=== PATIENT | female | born 1985 | race African-American/Black ===

== ENCOUNTER 2023-01-23 18:24 | Emergency (ER) | payer OTHER, SELFPAY ==
--- NOTE | ~2023-01-23 | XR_ITS ---
EXAMINATION: XR CHEST CLINICAL INFORMATION: Reason for Exam cp COMPARISON: None TECHNIQUE: 2 views of the chest FINDINGS: Lines and tubes: EKG leads overlie the patient. Clear lungs. No pleural effusion. No pneumothorax. Normal cardiomediastinal silhouette. XR/XR chest 2V IMPRESSION: * Clear lungs.
[2023-01-23 18:46] VITALS: BP 151/91; PULSE 83; RESP 21; TEMP 37.1; O2SAT 100
[2023-01-23 18:47] VITALS: BP 160/102; PULSE 95; O2SAT 100; BMI 32.3
--- NOTE | 2023-01-23 19:50 | ECG_ITS ---
Test Reason : CHEST PAIN Blood Pressure : / mmHG Vent. Rate : 074 BPM Atrial Rate : 074 BPM P-R Int : 142 ms QRS Dur : 082 ms QT Int : 384 ms P-R-T Axes : 042 015 010 degrees QTc Int : 426 ms Normal sinus rhythm Minimal voltage criteria for LVH, may be normal variant ( R in aVL ) Nonspecific T wave abnormality Abnormal ECG No previous ECGs available Referred By: Taina Ocampo Electronically Signed By:MILLIE PHAN MD
[2023-01-23 20:16] VITALS: BP 141/67; PULSE 78; RESP 19; TEMP 37.1; O2SAT 100
[2023-01-23 21:03] VITALS: BP 161/90; PULSE 78; RESP 18; TEMP 36.6; O2SAT 100
--- NOTE | 2023-01-23 21:09 | MHC.EDTECH ---
Vitals updated and labs drawn and sent to lab
[2023-01-23 21:16] LABS: MANUAL DIFF FLAG NO
[2023-01-23 21:18] LABS: Basophils Absolute Auto 0.1 X10*3/uL (0.0-0.2); Basophils Percent Auto 0.7 % (0-2); Eosinophils Absolute Auto 0.3 X10*3/uL (0.0-0.4); Eosinophils Percent Auto 3.8 % (0-4); Hematocrit 42.2 % (37.0-47.0); Hemoglobin 13.2 g/dl (12.0-16.0); Imm Gran Abs Auto 0.02 X10*3/uL (0.00-0.03); Imm Gran Pct Auto 0.3 % (0.0-0.4); Lymphocytes Absolute Auto 3.3 X10*3/uL (1.2-4.9); Lymphocytes Percent Auto 47.7 % (20-40); Mean Corpuscular HGB Conc 31.3 g/dl (31.0-35.0); Mean Corpuscular Hemoglobin 24.5 pg (27.0-33.0); Mean Corpuscular Volume 78.4 fL (80.0-98.0); Mean Platelet Volume 10.3 fL (9.4-12.3); Monocytes Absolute Auto 0.6 X10*3/uL (0.1-1.2); Monocytes Percent Auto 7.9 % (2-11); Neutrophils Absolute Auto 2.7 x10*3/uL (2.0-8.3); Neutrophils Percent Auto 39.6 % (45-73); Platelet Count 286 X10*3/uL (160-400); Red Blood Count 5.38 X10*6/uL (4.20-5.50); Red Cell Distribution Width 14.7 % (11.0-16.0); White Blood Count 6.9 X10*3/uL (4.8-10.8)
[2023-01-23 21:26] LABS: INTERNATIONAL NORM RATIO 0.9 (0.9-1.1)
--- NOTE | 2023-01-23 21:26 | ED_ITS ---
HPI - General Adult General Chief complaint: General Medical Stated complaint: chest pains, 300mg of aspirins, per ems Time Seen by Provider: 01/23/23 21:25 Source: patient Mode of arrival: EMS Limitations: no limitations History of Present Illness HPI narrative: Patient felt faint and had chest pain for one week. She went to [facility] and was told she had costrochondritis. She has been taking NSAIDs but her pain is worse. Patient is a diabetic and has HTN. Patient states her pain is constant and a pressure Onset (ago): week(s) Severity: mild Exacerbating factors: none Related Data Previous Rx's Medication Instructions Recorded naproxen 500 mg tablet (Naprosyn) 500 mg PO BID #20 tabs 01/23/23 Allergies Allergy/AdvReac Type Severity Reaction Status Date / Time No Known Allergies Allergy Verified 01/23/23 19:50 Review of Systems Review of Systems: Yes all other systems are reviewed and are negative [facility] Social History Social History Advance Directives: No Advance Directives Information Provided: Yes Physical Exam ED Vital Signs: Vital Signs - 24 hr 01/23/23 18:46 01/23/23 20:16 01/23/23 21:03 Temperature 98.8 F 98.8 F 97.8 F Pulse Rate 83 78 78 Respiratory Rate 21 H 19 18 Blood Pressure 151/91 H 141/67 H 161/90 H Pulse Oximetry 100 100 100 Oxygen Delivery Method Room Air Room Air Room Air BMI result Body Mass Index 32.3 Const Other: obese female in no acute distress Nutritional Appearance: obese Orientation/consciousness: oriented to person and patient oriented x3 Limitations: no limitations HENMT Head: Yes normal to inspection Ears: external ears normal General nose exam: Normal external nose present Mouth: Normal oral and palatal mucosa present and oropharynx normal Throat: Yes posterior oropharynx normal Eyes General: appearance normal, both eyes and all related structures Neck Neck: Yes normal visual inspection Chest Other: left sided reproducible chest pain Resp Auscultation: clear to auscultation bilaterally Cardio Jugular venous distension: no JVD Rate: regular rate Rhythm: regular rhythm Heart sounds: S1 normal heart sound present and S2 normal heart sound present GI Inspection: Yes normal to inspection Palpation (GI): Soft to palpation, nontender and No hepatosplenomegaly present Auscultation: normal bowel sounds General: Yes no CVA tenderness Back/Spine/Pelvis Back: no CVA tenderness Skin General skin exam: no rashes or lesions noted Neuro General: oriented to person and patient oriented x3 Cranial nerves: Yes CN's II-XII intact bilaterally Motor exam (neuro): 5/5 motor strength present throughout Extrem General: Yes normal to inspection Psych Appearance: grossly normal Course Reevaluation(s) Reevaluation #1: EKG normal, ddimer negative, troponin negative, CXR negative will increase NSAIDS and dc home Time: 22:05 Medications Administered Discontinued Medications Generic Name Dose Route Start Last Admin Trade Name Freq PRN Reason Stop Dose Admin Ketorolac Tromethamine 60 mg 01/23/23 21:33 01/23/23 21:55 Ketorolac Tromethamine 60 Mg/2 Ml Vial IM 01/23/23 21:34 60 mg ONCE ONE Administration Medical Decision Making Differential Diagnosis Differential Diagnoses: The differential diagnosis associated with the presentation includes (Cardiac ischemia, PE, pneumonia, costrochondritis were all considered) Admission/Observation Consideration of admission/observation: Escalation of care including admission/ observation considered (Upon arrival this patient with DM, obesity, HTN with left sided chest pain was considered for admission) Lab Data MDM Lab Attestation statement: I reviewed the patient's lab results. (NO elevated WBC, negative troponin, negative ddimer) 01/23/23 21:08 01/23/23 21:08 Labs: Lab Results 01/23/23 01/23/23 01/23/23 Range/Units 21:08 21:08 21:08 WBC 6.9 (4.8-10.8) X10*3/uL RBC 5.38 (4.20-5.50) X10*6/uL Hgb 13.2 (12.0-16.0) g/dl Hct 42.2 (37.0-47.0) % MCV 78.4 L (80.0-98.0) fL MCH 24.5 L (27.0-33.0) pg MCHC 31.3 (31.0-35.0) g/dl RDW 14.7 (11.0-16.0) % Plt Count 286 (160-400) X10*3/uL MPV 10.3 (9.4-12.3) fL Immature Gran % (Auto) 0.3 (0.0-0.4) % Neut % (Auto) 39.6 L (45-73) % Lymph % (Auto) 47.7 H (20-40) % [place] % (Auto) 7.9 (2-11) % Eos % (Auto) 3.8 (0-4) % Baso % (Auto) 0.7 (0-2) % Lymph # (Auto) 3.3 (1.2-4.9) X10*3/uL [place] # (Auto) 0.6 (0.1-1.2) X10*3/uL Eos # (Auto) 0.3 (0.0-0.4) X10*3/uL Baso # (Auto) 0.1 (0.0-0.2) X10*3/uL Abs Immat Gran (auto) 0.02 (0.00-0.03) X10*3/uL Absolute Neuts (auto) 2.7 (2.0-8.3) x10*3/uL Absolute Nucleated RBC 0.000 (0.0-0.012) X10*3/uL Nucleated RBC % (auto) 0.0 (0.0-0.2) /100WBC PT 10.0 (10.0-13.1) SEC INR 0.9 (0.9-1.1) D-Dimer High Sensitivty < 150 NG/ML Sodium 141 (135-145) mmol/L Potassium 3.8 (3.3-5.1) mmol/L Chloride 105 (96-108) mmol/L Carbon Dioxide 25 (22-29) mmol/L Anion Gap 15 (12-20) BUN 12 (9-16) mg/dL Creatinine 0.74 (0.5-1.4) mg/dL Estim Creat Clear Calc 91.1 Estimated GFR > 60 Random Glucose 199 H (60-115) mg/dL Calcium 9.7 (8.4-10.2) mg/dL Troponin I High Sens (<3.5-17.0) ng/L 01/23/23 Range/Units 21:08 WBC (4.8-10.8) X10*3/uL RBC (4.20-5.50) X10*6/uL Hgb (12.0-16.0) g/dl Hct (37.0-47.0) % MCV (80.0-98.0) fL MCH (27.0-33.0) pg MCHC (31.0-35.0) g/dl RDW (11.0-16.0) % Plt Count (160-400) X10*3/uL MPV (9.4-12.3) fL Immature Gran % (Auto) (0.0-0.4) % Neut % (Auto) (45-73) % Lymph % (Auto) (20-40) % [place] % (Auto) (2-11) % Eos % (Auto) (0-4) % Baso % (Auto) (0-2) % Lymph # (Auto) (1.2-4.9) X10*3/uL [place] # (Auto) (0.1-1.2) X10*3/uL Eos # (Auto) (0.0-0.4) X10*3/uL Baso # (Auto) (0.0-0.2) X10*3/uL Abs Immat Gran (auto) (0.00-0.03) X10*3/uL Absolute Neuts (auto) (2.0-8.3) x10*3/uL Absolute Nucleated RBC (0.0-0.012) X10*3/uL Nucleated RBC % (auto) (0.0-0.2) /100WBC PT (10.0-13.1) SEC INR (0.9-1.1) D-Dimer High Sensitivty NG/ML Sodium (135-145) mmol/L Potassium (3.3-5.1) mmol/L Chloride (96-108) mmol/L Carbon Dioxide (22-29) mmol/L Anion Gap (12-20) BUN (9-16) mg/dL Creatinine (0.5-1.4) mg/dL Estim Creat Clear Calc Estimated GFR Random Glucose (60-115) mg/dL Calcium (8.4-10.2) mg/dL Troponin I High Sens < 2.7 (<3.5-17.0) ng/L Independent Interpretation I performed an independent interpretation of an: EKG (sinus [address] or twave changes) and Plain X-Ray (CXR: no infiltrate or PTX) Tests considered The following testing was considered but not selected: I considered a CT angio of chest but the ddimer was negative Prescription Management I considered prescription management with: Pain Medication (I considered narcotic meds but will start NSAIDS) and Antibiotic (I considered Antibiotic but no elevated wbc and no pneumonia on xray) Chronic Conditions Patient?s care impacted by: Hypertension and Other (obesity) Discharge Plan Discharge Clinical Impression: Acute costochondritis Patient Disposition: Home, Self-Care Instructions: Costochondritis (ED) Prescriptions: New naproxen [Naprosyn] 500 mg tablet 500 mg PO BID Qty: 20 0RF Referrals: Physician,None [Primary Care Provider] - 5 days
[2023-01-23 21:31] LABS: Anion Gap 15 (12-20); Blood Urea Nitrogen 12 mg/dL (9-16); Calcium 9.7 mg/dL (8.4-10.2); Carbon Dioxide 25 mmol/L (22-29); Chloride 105 mmol/L (96-108); Creatinine Clr Calc Pharmacy 91.1; Estimated Glomerular Filt Rate > 60; Glucose Random 199 mg/dL (60-115); Potassium 3.8 mmol/L (3.3-5.1); Sodium 141 mmol/L (135-145)
[2023-01-23 21:44] LABS: Troponin-I High Sensitivity < 2.7 ng/L (<3.5-17.0)
[2023-01-23 21:51] LABS: D Dimer High Sensitivity < 150 NG/ML
[2023-01-23] MEDS: Ketorolac Tromethamine 60 MG/2 ML VIAL IM (21:55)
== END 2023-01-23 23:03 | disposition home or self-care (01) ==
PROVIDERS: Physician Assistant; Emergency Provider Emergency Medicine
DX: R07.89 Other chest pain (principal); M94.0 Chondrocostal junction syndrome [Tietze]; Z79.899 Other long term (current) drug therapy
CPT/HCPCS: 36415; 71046; 80048; 84484; 85025; 85379; 85610; 93005; 96372; 99284; 99285; J1885

== ENCOUNTER → 2023-01-23 19:50 | Outpatient (BNV) | payer OTHER, SELFPAY | PROVIDERS: Emergency Provider Emergency Medicine; Visit Provider Internal Medicine Cardiovascular Disease | DX: R07.9 Chest pain, unspecified (principal) | CPT/HCPCS: 93010 ==

== ENCOUNTER 2024-02-17 13:06 | Outpatient (AMB) | payer OTHER, SELFPAY ==
--- NOTE | 2024-02-17 13:10 | A.OFFVIS_ITS ---
Vital Signs 3 02/17/24 13:12 Height 4 ft 11 in Weight 198 lb 6.656 oz BMI 40.1 BP 143/91 H Blood Pressure Location Lt brachial Position Sitting Pulse 84 Intake Visit Reasons: Rectal bleeding Intake Note: Jneifer presents in the office as a new patient for Rectal Bleeding. CC: She states that when she has a BM is when the bleeding occurs. Not actively bleeding - states that she has constipation on some days and other days she has diarrhea. She has diverticulitis. Oven Baker Required: No Allergies clindamycin Allergy (Mild, Verified 02/17/24 13:14) Unknown HPI HPI Rectal bleeding: Details: 39-year-old female here for initial evaluation of rectal bleeding. She is referred by [facility] primary care PMX Morbid obesity Diabetes Hypertension High cholesterol Chronic low back pain Fibromyalgia syndrome Migraines Costochondritis Endometriosis Insomnia History of diverticulitis GERD History of pericarditis * SURGICAL HISTORY Hysterectomy Exploratory laparotomy Dental surgery section * ALLERGIES Clindamycin - Hives * LABS SUPPLIED BY PCP: 11/2022 unremarkable CBC except for thrombophilia of 357, unremarkable renal panel, unremarkable hepatic panel CT [facility] 10/12/2023 RESULT: CT Abd/Pelvis W/ IV Contrast Only CT Abd/Pelvis W/ IV Contrast Only Hx of Present Illness: sharp shooting cp starting 45 min ago, hx pericarditis, abd pain upper left and tender, L calf pain; Reason: Other:; new tender mass epigastric, ?unreducible hernia; Clinical Question(s): Other:; Order Comment: TECHNIQUE: Spiral CT through the abdomen and pelvis with IV contrast formatted in 3 planes. 100 cc of Omnipaque 300 was administered intravenously. This study was performed without oral contrast. Weight-based protocol using automatic tube modulation was used to optimize exposure parameters. CTDIvol Body: 18.00 mGy, DLP Body: 976 mGy*cm. COMPARISON: None. FINDINGS: Vice President And Portfolio Manager View Findings, Lines and Tubes: None. Visualized Chest: Lung bases are clear. No pleural effusion. The heart is normal in size. No pericardial effusion. Diaphragm: Normal. Liver: Normal. Gallbladder: No CT evidence of gallbladder pathology. Bile ducts: No biliary ductal dilation. Spleen: Normal. Pancreas: Normal. Adrenal glands: Normal. Kidneys and ureters: No hydronephrosis, stones, or suspicious masses. Simple appearing renal cysts are noted, requiring no dedicated follow up. Bladder: Normal. Reproductive organs: Unremarkable. Stomach, small bowel, and large bowel: Colonic diverticulosis present. No inflammatory changes appreciated. No obstruction. Appendix: Normal. Peritoneum and retroperitoneum: No ascites or pneumoperitoneum. No omental or mesenteric lesions. Lymph nodes: No enlarged lymph nodes. Blood vessels: Normal. No aneurysm. No evidence of venous thrombosis. Abdominal and pelvic wall: Unremarkable. Bones: No acute abnormality. IMPRESSION: Unremarkable CT of the abdomen and pelvis. TODAYS VISIT She has had 203 TICS attacks over the past 4 years, and she only has rectal bleeding when she has TICS. She also contends with endometriosis. She has never had a colonoscopy. She feared not being put to sleep r/t the procedure. This is what they told her in [place]. NO upper abd pain, no N/V except when pain is severe. CIC yes, incomplete evacuation with Miralax - no fiber supplement. I recommend benefiber or citrucel or whatever fits her budget. No FHX of tics or similar sx. NO known FHX of CRC Or polyps. She denies any cardiac or respiratory problems. There are no prior problems or sedation. NO ID problems. NO known FHX of CRC Or polyps. ? pericarditis do basic w/o and consider if rheum referral needed. Return office visit in 8 weeks [facility] Surgical History (Updated 02/17/24 @ 13:15 by JACQUES Huitron) History of esophagogastroduodenoscopy (EGD) History of dental surgery H/O exploratory laparotomy History of section History of hysterectomy Social History Alcohol intake: never Review of Systems Const Denies fatigue, Denies fever(s), Denies night sweats, Denies poor appetite and Denies weight loss Eyes Details: glasses Reports requires corrective lenses ENT Reports Normal hearing present, Denies dental pain, Denies dysphagia, Denies hearing loss, Denies mouth pain, Denies odynophagia, Denies throat swelling, Denies tongue swelling and Reports other (Dentition adequate) Card Reports no additional complaints Resp Reports no additional complaints GI Details: Denies abdominal pain, Denies melena, Reports bloating, Denies hematochezia, Reports constipation, Denies GI cramping, Denies dysphagia, Denies excessive flatus, Denies early satiety, Reports heartburn, Denies diarrhea, Denies nausea, Denies odynophagia, Denies vomiting and Denies hematemesis Musc Reports back pain, Reports myalgias, Reports joint swelling and Reports stiffness Skin/Breast Denies pruritus, Denies lesions, Denies rash and Denies jaundice Neuro Reports Normal hearing present and Denies Abnormal speech present Psych Reports anxiety Endo Denies fatigue Aller/Immun Denies throat swelling and Denies tongue swelling Physical Exam Vital Signs: Last Vital Signs Pulse 84 02/17/24 13:12 BP 143/91 H 02/17/24 13:12 BMI result Body Mass Index 40.1 Const General: cooperative, no acute distress, well developed and well groomed Nutritional Appearance: well nourished and obese morbidly obese Orientation/consciousness: oriented to person, oriented to place and oriented to time Limitations: No language barrier HEENT Head: Yes normocephalic and Yes atraumatic Eyes General: appearance normal, both eyes and all related structures Pupils: Equal, round and reactive pupils present Neck Neck: Yes normal visual inspection and Yes no lymphadenopathy Thyroid: Thyroid normal Resp Effort & Inspection: normal respiratory effort and able to speak in complete sentences Auscultation: clear to auscultation bilaterally Cardio Rate: regular rate Rhythm: regular rhythm Heart sounds: Normal, physiologic split S2 sound present Peripheral pulses: radial pulses present and posterior tibial pulses present GI Inspection: No distended, Yes Abdominal panniculus present and Yes obesity Palpation (GI): Soft to palpation, nontender, no guarding, not rigid and No hepatosplenomegaly present Percussion: Yes normal to percussion Auscultation: normal bowel sounds Rectal Exam - Female: deferred Abdomen image: 2 1. surgical scars 2. 3. 4. Skin General skin exam: no rashes or lesions noted, turgor normal, skin not dry, no jaundice, No spider nevi and no striae Rashes: no rashes Nails: normal Neuro General: oriented to person, oriented to place and oriented to time Cranial nerves: Yes Equal, round and reactive pupils present and Yes Normal hearing present Speech: No Abnormal speech present Extrem General: Yes normal to inspection, No clubbing, No cyanosis and No edema Psych Appearance: grossly normal and well kempt Mental Status: mental status grossly normal Speech and movement: Normal speech and movement present Affect: normal affect Attitude: cooperative Thought process: Normal thought process present and not confabulating Thought content: Normal thought content present Insight: Fair insight present (Psych) Judgement: Fair judgement present (Psych) Assessment & Plan Assessment & Plan (1) Rectal bleeding: Code(s): K62.5 - Hemorrhage of anus and rectum Category: Medical (2) Pre-op examination: Code(s): Z01.818 - Encounter for other preprocedural examination Category: Medical (3) History of diverticulitis: Comment: recurrent with 3-4 attack a year Code(s): Z87.19 - Personal history of other diseases of the digestive system Category: Medical (4) History of pericarditis: Code(s): Z86.79 - Personal history of other diseases of the circulatory system Category: Medical (5) Arthralgia: Code(s): M25.50 - Pain in unspecified joint Category: Medical Plan She has had 2-3 TICS attacks every year over the past 4 years, and she only has rectal bleeding when she has TICS. She also contends with endometriosis. She has never had a colonoscopy. She feared not being put to sleep r/t the procedure. This is what they told her in [place]. NO upper abd pain, no N/V except when pain is severe. CIC yes, incomplete evacuation with Miralax - no fiber supplement. I recommend benefiber or citrucel or whatever fits her budget. No FHX of tics or similar sx. NO known FHX of CRC Or polyps. She denies any cardiac or respiratory problems. There are no prior problems or sedation. NO ID problems. NO known FHX of CRC Or polyps. ? pericarditis do basic w/o and consider if rheum referral needed. Return office visit in 8 weeks Orders: Orders 2 FRANCIS Reflex Titer and Pattern Today M25.50 - Pain in unspecified joint, Z86.79 - Personal history of other diseases of the circulatory system Rheumatoid Factor Today M25.50 - Pain in unspecified joint, Z86.79 - Personal history of other diseases of the circulatory system Colonoscopy - GI Use Only Today Z87.19 - Personal history of other diseases of the digestive system C Reactive Protein Today M25.50 - Pain in unspecified joint, Z86.79 - Personal history of other diseases of the circulatory system Cyclic Citrullinated Peptide Today M25.50 - Pain in unspecified joint, Z86.79 - Personal history of other diseases of the circulatory system Erythrocyte Sedimentation Rate Today M25.50 - Pain in unspecified joint, Z86.79 - Personal history of other diseases of the circulatory system Medications: New 2 peg 3350-electrolytes 236-22.74-6.74 -5.86 gram (Golytely) until fecal effluent is clear; do not exceed a total volume of 2,000 mL 240 mL PO Q10M 4,000 mL 0RF 1 day Z12.11 - Encounter for screening for malignant neoplasm of colon bisacodyl (Dulcolax (bisacodyl)) 10 mg (2 x 5 mg) PO BEDTIME 4 tabs 0RF 2 days amoxicillin-pot clavulanate 875-125 mg 1 tab PO BID 20 tabs 0RF 10 days Z87.19 - Personal history of other diseases of the digestive system sennosides (Senna Laxative) 8.6 mg PO BEDTIME 60 tabs 3RF Coding Level of Care Code New Pt Level 3 (49140) Diagnoses Rectal bleeding K62.5 Pre-op examination Z01.818 History of diverticulitis Z87.19 History of pericarditis Z86.79 Arthralgia M25.50
[2024-02-17 13:12] VITALS: BP 143/91; PULSE 84; BMI 40.1
== END 2024-02-17 14:05 | disposition home or self-care (01) ==
PROVIDERS: PCP Internal Medicine; Visit Provider Nurse Practitioner
DX: K62.5 Hemorrhage of anus and rectum (principal); Z01.818 Encounter for other preprocedural examination; Z87.19 Personal history of other diseases of the digestive system; Z86.79 Personal history of other diseases of the circulatory system; M25.50 Pain in unspecified joint
CPT/HCPCS: 99203

== ENCOUNTER → 2024-02-17 13:06 | Outpatient (BNVA) | payer OTHER, SELFPAY | PROVIDERS: PCP Internal Medicine; Visit Provider Nurse Practitioner | DX: Z01.818 Encounter for other preprocedural examination (principal); K62.5 Hemorrhage of anus and rectum; M25.50 Pain in unspecified joint; Z87.19 Personal history of other diseases of the digestive system; Z86.79 Personal history of other diseases of the circulatory system | CPT/HCPCS: 99202 ==

== ENCOUNTER 2024-06-15 08:07 | Day surgery (SDC) | payer SELFPAY ==
--- NOTE | 2024-06-14 13:15 | P.CONAN_ITS ---
Documented by User: Elsa Moe NP 06/14/24 13:15 HPI - Anesthesia Eval Consult details Narrative: 39yo F for Colonoscopy Anesthesia Pre-Procedure Meds Is the patient on any of the following meds?: GLP1/DPP4 PMFSH Active Problems Active Problems: All Active Problems Arthralgia (Acute) Pre-op examination (Acute) Rectal bleeding (Acute) History of pericarditis (Acute) GERD (gastroesophageal reflux disease) (Acute) History of diverticulitis (Acute) Depression (Acute) Insomnia (Acute) Endometriosis (Acute) Costochondritis (Acute) Migraines (Acute) Primary fibromyalgia syndrome (Acute) Chronic low back pain (Acute) High cholesterol (Acute) Hypertension (Acute) IDDM (insulin dependent diabetes mellitus) (Acute) Morbid obesity (Acute) Past Medical History Medical History Migraine Chronic low back pain Insomnia Depression Elevated cholesterol HTN (hypertension) GERD (gastroesophageal reflux disease) Diabetes Surgical History Surgical History History of esophagogastroduodenoscopy (EGD) History of dental surgery H/O exploratory laparotomy History of section History of hysterectomy Social History Social History Are you a primary career services coordinator to a significant other at home: No Do you presently have visiting nurse or other home services: No Alcohol intake: never Patient Tobacco Use Status: Never used Tobacco Use of substances other than those prescribed or required for medical reasons: No Have you been hit, kicked, punched, or otherwise hurt by someone within the past year? If so, by whom?: No Are you DNR?: No Advance Directives: No Advance Directives Information Provided: Yes Recently lost weight without trying: No Nutrition Risks: No Nutritional Risk Meds Allergies Allergy/AdvReac Type Severity Reaction Status Date / Time clindamycin Allergy Mild Unknown Verified 02/17/24 13:14 Home Medications ?Medication ?Instructions ?Recorded ?Confirmed ?Last Taken ?Type albuterol sulfate 90 mcg/actuation inhalation 02/17/24 Unknown History aerosol inhaler atorvastatin 80 mg tablet mg PO 02/17/24 Unknown History blood-glucose sensor (FreeStyle #1 ea 02/17/24 Unknown History Yovani 3 Sensor device) lidocaine 5 % topical patch patch topical 02/17/24 Unknown History losartan 100 tab PO 02/17/24 Unknown History mg-hydrochlorothiazide 25 mg tablet metoprolol succinate 25 mg mg PO 02/17/24 Unknown History tablet,extended release 24 hr ondansetron HCl 4 mg tablet mg PO 02/17/24 Unknown History tirzepatide 10 mg/0.5 mL mg subcut 02/17/24 06/04/24 History subcutaneous pen injector (Mounjaro) Assessment and Plan Assessment Anesthesia Assessment: Chart Reviewed Documented by User: Monik Hidalgo MD 06/15/24 09:08 PMFSH Past Medical History Medical History Migraine Chronic low back pain Insomnia Depression Elevated cholesterol HTN (hypertension) GERD (gastroesophageal reflux disease) Diabetes Family History Family history of problems with anesthesia: No Surgical History Surgical History History of esophagogastroduodenoscopy (EGD) History of dental surgery H/O exploratory laparotomy History of section History of hysterectomy History of Problems with Anesthesia: No Social History Social History Are you a primary career services coordinator to a significant other at home: No Do you presently have visiting nurse or other home services: No Alcohol intake: never Patient Tobacco Use Status: Never used Tobacco Use of substances other than those prescribed or required for medical reasons: No Have you been hit, kicked, punched, or otherwise hurt by someone within the past year? If so, by whom?: No Are you DNR?: No Advance Directives: No Advance Directives Information Provided: Yes Recently lost weight without trying: No Nutrition Risks: No Nutritional Risk Meds Allergies Allergy/AdvReac Type Severity Reaction Status Date / Time clindamycin Allergy Mild Unknown Verified 02/17/24 13:14 Home Medications ?Medication ?Instructions ?Recorded ?Confirmed ?Last Taken ?Type albuterol sulfate 90 mcg/actuation inhalation 02/17/24 Unknown History aerosol inhaler atorvastatin 80 mg tablet mg PO 02/17/24 Unknown History blood-glucose sensor (FreeStyle #1 ea 02/17/24 Unknown History Yovani 3 Sensor device) lidocaine 5 % topical patch patch topical 02/17/24 Unknown History losartan 100 tab PO 02/17/24 Unknown History mg-hydrochlorothiazide 25 mg tablet metoprolol succinate 25 mg mg PO 02/17/24 Unknown History tablet,extended release 24 hr ondansetron HCl 4 mg tablet mg PO 02/17/24 Unknown History tirzepatide 10 mg/0.5 mL mg subcut 02/17/24 06/04/24 History subcutaneous pen injector (Amira) Exam Airway Mallampati Class: III TM Dist: >3cm Neck ROM: Full Heart: rrr Lungs: cta Assessment and Plan Assessment Anesthesia Assessment: Anesthesia Plan Discussed Final Anesthetic Review Family History of Problems with Anesthesia: No History of Problems with Anesthesia: No NPO: Yes ASA Class: III Final Preanesthetic Review: No Changes in Pt Med Stat, Meds/Allgs Chart Reviewed, Consent Obtained/Reviewed and Anes Risks/Benef Reviewed Patient Risk: Intermediate Procedure Risk: Low Anesthetic Plan Anesthetic Plan: MAC: Disposition: Standard PACU
--- NOTE | 2024-06-15 08:55 | MHC.SHP ---
Pre-Procedural Eval Section A - 24 Hr Update-Section A only Date of Service: 06/15/24 Section B - Complete if H&P > 30 days Chief Complaint: rectal bleeding,hx of disease of digestive system Relevant Family History (Specify if Yes): Yes Relevant Social History: None Present Medications: see Short Stay Collaborative assessment Medical History: Significant History (Migraine Chronic low back pain Insomnia Depression Elevated cholesterol HTN (hypertension) GERD (gastroesophageal reflux disease) Diabetes) History of Previous Operations: Relevant previous surgery/procedure and date(s) (History of esophagogastroduodenoscopy (EGD) History of dental surgery H/O exploratory laparotomy History of section History of hysterectomy) Allergies: Allergies Allergy/AdvReac Type Severity Reaction Status Date / Time clindamycin Allergy Mild Unknown Verified 02/17/24 13:14 Review of Systems Sugical H&P ROS: Negative: Constitution, Cardiovascular, Respiratory, Neurological, Psychiatric, Hem-Onc, Allergic/Immunologic, Gastrointestinal, Genitourinary, Musculoskeletal, Integumentary, Endocrine and Eyes/Ears/Nose/Throat Exam Surgical H&P Exam: Normal: HEENT, Normal: Heart, Normal: Lungs, Normal: Extremities, Normal: Abdomen, Normal: Skin and Normal: Neurological Plan Diagnosis/Plan: Unchanged I have reviewed the history and physical and performed a pertinent physical examination on my patient. No changes have occurred unless specified. Time Spent With Patient Time: Total time managing care of this patient today ____ minutes.
[2024-06-15 08:58] VITALS: BMI 36.6
[2024-06-15 09:03] VITALS: BP 129/88; PULSE 77; RESP 16; TEMP 36.4; O2SAT 100
[2024-06-15] MEDS: Lactated Ringers 1,000 ML 100 ML IVCONT (09:26)
--- NOTE | 2024-06-15 09:58 | HO.OPN-COLON ---
Colonoscopy Operative Note Operative Note Date of Service: 06/15/24 Narrative: Operative Information Procedure Description: Colonoscopy Indication: rectal bleeding Anesthesia: MAC COLONOSCOPY Instrument: Olympus variable stiffness adult scope 190L Colonoscopy Monitoring: Vital signs and clinical assessment, continuous EKG monitoring, Pulse oximetry, Carbon Dioxide monitoring and blood pressure monitoring were done throughout the procedure. Colon withdrawal time was 10 minutes. Procedure: The patient was placed in the left lateral decubitis position and pre-procedure medications were administered. After a digital rectal examination of the ano-rectum, the video colonoscope was inserted into the rectum and advanced through the colon to the cecum/TI. The colonoscope was slowly withdrawn in a retrograde panoramic fashion and the colon mucosa was carefully examined including a retroflexed view of the rectum. Findings and interventions are described below. Procedure Difficulty: easy Findings: Terminal Ileum-normal Cecum:normal right sided retroflexion- normal Ascending Colon: normal Transverse Colon -normal Descending Colon:normal Sigmoid Colon: moderate diverticulosis, 5-6 mm sessile polyp removed with cold snare Rectum: Retroflexion with medium sized internal hemorrhoids seen, grade I Anorectum - normal Intervention: cold snare Colon preparation: [place] Bowel Preparation Scale Right colon; 1-2 Transverse colon: 2 Left colon; 1-2 (0 = Unprepared colon segment with mucosa not seen due to solid stool that cannot be cleared. 1 = Portion of mucosa of the colon segment seen, but other areas of the colon segment not well seen due to staining, residual stool and/or opaque liquid. 2 = Minor amount of residual staining, small fragments of stool and/or opaque liquid, but mucosa of colon segment seen well. 3 = Entire mucosa of colon segment seen well with no residual staining, small fragments of stool or opaque liquid) Impression and Post Procedure Diagnosis: diverticulosis colon polyp internal hemorrhoids Plan: High fiber diet leaflet Avoid straining at stool, epsom salts and sitz bath, anusol supps or cream Repeat Colonoscopy in 2-3 years due to some areas of fair prep or earlier if clinically indicated Above findings were reviewed with the patient and relevant handouts were provided if indicated.
[2024-06-15 10:02] VITALS: BP 102/54; PULSE 99; RESP 16; TEMP 36.2; O2SAT 97
[2024-06-15 10:17] VITALS: BP 122/75; PULSE 97; RESP 16; TEMP 36.1; O2SAT 100
[2024-06-15 12:12] LABS: Glucose, Whole Blood 95 mg/dL (60-115)
== END 2024-06-15 11:05 | disposition home or self-care (01) ==
PROVIDERS: PCP Internal Medicine; Visit Provider Internal Medicine Gastroenterology
PROC: 0DJD8ZZ Inspection of Lower Intestinal Tract, Via Natural or Artificial Opening Endoscopic (ICD-10-PCS; CPT 45378; principal; 2024-06-15 09:30)
DX: K63.5 Polyp of colon (principal); K57.30 Diverticulosis of large intestine without perforation or abscess without bleeding; K64.0 First degree hemorrhoids; K62.5 Hemorrhage of anus and rectum; K21.9 Gastro-esophageal reflux disease without esophagitis; Z87.19 Personal history of other diseases of the digestive system; E11.9 Type 2 diabetes mellitus without complications; I10 Essential (primary) hypertension; E78.5 Hyperlipidemia, unspecified; E66.9 Obesity, unspecified; Z68.41 Body mass index [BMI] 40.0-44.9, adult; Z79.4 Long term (current) use of insulin
CPT/HCPCS: 45385; 82947; 88305; J2003; J2250; J2704

== ENCOUNTER → 2024-06-15 08:07 | Outpatient (BNV) | payer SELFPAY | PROVIDERS: PCP Internal Medicine; Visit Provider Internal Medicine Gastroenterology | DX: K62.5 Hemorrhage of anus and rectum (principal); K63.5 Polyp of colon; K57.30 Diverticulosis of large intestine without perforation or abscess without bleeding; K64.0 First degree hemorrhoids | CPT/HCPCS: 45385 ==